=== PATIENT | female | born 1935 | race Caucasian/White ===

== ENCOUNTER → 2016-09-14 | Outpatient (CLI) | payer MEDICARE, OTHER ==
[~2016-09-14] MED LIST: ASPIRIN E.C. 8181 MG PO; CALCIUM 600-D 61 TAB PO; DYAZIDE 25 MG-31 CAP PO; FIBER0.52 GM PO; LOTENSIN20 MG PO; MULTI VITAMINS1 TAB PO; OMEGA 31000 MG PO; ZOCOR 20MG20 MG PO
== END ==
LOC: MC.RAD 10:40
DX: Z12.31 Encounter for screening mammogram for malignant neoplasm of breast (principal)

== ENCOUNTER → 2017-07-06 | Outpatient (CLI) | payer MEDICARE, OTHER | LOC: COL.VAS 07-04 11:15 | DX: I08.3 Combined rheumatic disorders of mitral, aortic and tricuspid valves (principal) ==

== ENCOUNTER → 2019-09-20 | Outpatient (CLI) | payer MEDICARE, OTHER | LOC: COL.VAS 11:47 | DX: I08.3 Combined rheumatic disorders of mitral, aortic and tricuspid valves (principal); I77.819 Aortic ectasia, unspecified site ==

== ENCOUNTER → 2021-08-11 | Outpatient (CLI) | payer MEDICARE, OTHER ==
[2021-08-11 07:54] LABS: CALCIUM 9.5 mg/dL (8.4-10.2); CREATININE, serum 0.96 mg/dL (0.57-1.11); POTASSIUM 3.9 mmol/L (3.5-4.5)
== END ==
LOC: COL.RAD 08-04 07:30 → COL.LAB 06:53 → COL.RAD 06:53
PROVIDERS: Internal Medicine Adult Congenital Heart Disease
DX: I77.810 Thoracic aortic ectasia (principal); L92.8 Other granulomatous disorders of the skin and subcutaneous tissue; K57.30 Diverticulosis of large intestine without perforation or abscess without bleeding
CPT/HCPCS: Q9967

== ENCOUNTER → 2023-06-23 | Outpatient (CLI) | payer MEDICARE, OTHER | LOC: MC.RAD 07:14 | DX: Z12.31 Encounter for screening mammogram for malignant neoplasm of breast (principal) ==

== ENCOUNTER 2023-08-18 06:52 | Day surgery (SDC) | payer MEDICARE, OTHER ==
[~2023-08-18] VITALS: Ht 162.7 cm; Wt 63.0 kg
[~2023-08-18 06:52] MED LIST changes: +LR 1,000 ML IV SCH
[2023-08-18] MEDS ORDERED: 1/2 NS 1,000 ML IV SCH (07:15)
[2023-08-18] MEDS ORDERED: NS Flush 10 ML SYRINGE PRN ICA (07:15)
[2023-08-18 07:35] LABS: HEMATOCRIT 39.2 % (37.0-47.0); HEMOGLOBIN 12.7 g/dl (12.5-16.0); MEAN CELL VOLUME 94 fl (80.0-100.0); MEAN CORPUSCULAR HEMOGLOBIN 30 pg (27-31); MEAN CORPUSCULAR HGB CONC 32 g/dl (33.0-37.0); MEAN PLATELET VOLUME 10.3 fl (7.4-10.4); PLATELET COUNT 185 K/mm3 (130-400); RED BLOOD COUNT 4.18 M/mm3 (4.10-5.30); REDCELL DISTRIBUTION WIDTH-CV 12.6 % (11.5-14.5)
[2023-08-18 07:39] VITALS: BP 171/86; PULSE 56; TEMP 98
[2023-08-18 07:40] LABS: PROTHROMBIN TIME 10.7 SECONDS (9.7-12.8)
[2023-08-18] MEDS ORDERED: COZAAR100 MG PO (07:44)
[2023-08-18] MEDS ORDERED: ZEBETA10 MG PO (07:44)
[2023-08-18] MEDS ORDERED: TYLENOL 500MG500 MG PO (07:44)
[2023-08-18] MEDS ORDERED: CALCIUM CITRAT950 MG PO (07:46)
[2023-08-18] MEDS ORDERED: CRANBERRY250 MG PO (07:46)
[2023-08-18] MEDS ORDERED: LASIX 20MG TABL20 MG PO (07:47)
[2023-08-18] MEDS ORDERED: ALDACTONE 25MG25 M1 PO (07:48)
[2023-08-18] MEDS ORDERED: QUALITY CHOIC0.52 GM PO (07:48)
[2023-08-18] MEDS ORDERED: VESICARE 5MG5 MG PO (07:48)
[2023-08-18 07:55] LABS: CALCIUM 10.2 mg/dL (8.4-10.2); CREATININE, serum 1.15 mg/dL (0.57-1.11); POTASSIUM 4.1 mEq/L (3.5-4.5)
[2023-08-18] MEDS ORDERED: Lidocaine PF 2% (20 MG/ML) 5 ML VIAL ONE (08:26)
[2023-08-18] MEDS ORDERED: NS Flush 10 ML SYRINGE BID ICA SCH (09:00)
[2023-08-18 09:35] VITALS: BP 104/71; PULSE 50
[2023-08-18] MEDS ORDERED: COZAAR 25MG25 MG/TAB PO (09:38)
[2023-08-18] MEDS ORDERED: ALDACTONE50 MG PO (09:39)
--- NOTE | 2023-08-18 09:40 | NUR ---
PATIENT ALERT AND ORIENTED, VSS. PATIENT PROVIDED CALL LIGHT, BED TO LOWEST POSITION, X3 BEDRAILS IN PLACE. FAMILY BROUGHT TO BEDSIDE. TRANSFER OF CARE TO CLAUDIA OLIVARES. PLAN OF CARE REVIEWED, QUESTIONS INVITED. AWAITING VISIT FROM PROVIDER.
[2023-08-18 09:45] VITALS: BP 115/64; PULSE 52
[2023-08-18 10:00] VITALS: BP 133/69; PULSE 50
[2023-08-18 10:15] VITALS: BP 124/66; PULSE 48
[2023-08-18 10:30] VITALS: BP 126/60; PULSE 50
--- NOTE | 2023-08-18 11:37 | NUR ---
PT TOLERATED RECOVERY PERIOD WELL. PT TOLERATED PO FLUIDS AND REMAINED FREE FROM ACUTE CONCERNS AND COMPLAINTS. IV DISCONTINUED. PT ASSISTED TO MAIN LOBBY VIA WHEELCHAIR. VS REMAINED WITHIN NORMAL LIMITS.
== END 2023-08-18 10:50 | disposition home or self-care (01) ==
LOC: COL.CAR 06:52
PROVIDERS: Internal Medicine Cardiovascular Disease
DX: I35.0 Nonrheumatic aortic (valve) stenosis (principal); I77.819 Aortic ectasia, unspecified site; E78.2 Mixed hyperlipidemia; I10 Essential (primary) hypertension; Z79.82 Long term (current) use of aspirin; Z87.891 Personal history of nicotine dependence
CPT/HCPCS: J2704